=== PATIENT | male | born 1955 | race Caucasian/White ===

== ENCOUNTER 2017-02-11 07:20 | Day surgery (SDC) | payer MEDICAID ==
[~2017-02-11] VITALS: Ht 177.8 cm; Wt 97.0 kg
[~2017-02-11 07:20] MED LIST: BACITRACIN 50,000 UNIT ONE; BACITRACIN OINT 500U/GM, 15 GM ONE; EPINEPHRINE 1 MG/ML, 1ML ONE; EPINEPHRINE TOPICAL SOLN 1 MG/ML, 30ML ONE; FLUORESCEIN OPHTHALMIC 1 MG STRIP ONE; LIDOCAINE/PF 1%, 30ML ONE; OXYMETAZOLINE NASAL SPRAY 0.05%, 15ML ONE
[2017-02-11] MEDS ORDERED: MIDAZOLAM 1 MG/ML, 2ML ONE (07:28)
[2017-02-11] MEDS ORDERED: FENTANYL PF 250 MCG/5ML ONE (07:29)
[2017-02-11] MEDS ORDERED: FLUT9.9S16 NAS (07:52)
[2017-02-11] MEDS ORDERED: ALBU18HF INH (07:52)
[2017-02-11] MEDS ORDERED: MONT10TA9 PO (07:52)
[2017-02-11 07:53] VITALS: BP 139/93
[2017-02-11] MEDS ORDERED: LACTATED RINGERS 1,000 ML IV SCH (08:17)
[2017-02-11] MEDS ORDERED: REMIFENTANIL 2 MG ONE (09:09)
[2017-02-11] MEDS ORDERED: hydrALAzine 20 MG/ML, 1ML IV PRN (10:00)
[2017-02-11] MEDS ORDERED: OXYcodone 5 MG/5 ML ORAL.SOL UDC PO PRN (10:00)
[2017-02-11] MEDS ORDERED: MEPERIDINE/PF 25MG/0.5ML IVPush PRN (10:00)
[2017-02-11] MEDS ORDERED: ONDANSETRON 2MG/ML, 2ML IVPush PRN (10:00)
[2017-02-11] MEDS ORDERED: ACETAMINOPHEN 325 MG TABLET PO PRN (10:00)
[2017-02-11] MEDS ORDERED: HYDROcodone/APAP 7.5-325MG/15ML UDC PO PRN (10:00)
[2017-02-11] MEDS ORDERED: EPHEDRINE 50 MG/ML, 1ML IVPush PRN (10:00)
[2017-02-11] MEDS ORDERED: MIDAZOLAM 1 MG/ML, 2ML IV PRN (10:00)
[2017-02-11] MEDS ORDERED: HYDROmorphone 1 MG/ML, 1ML IV PRN (10:00)
[2017-02-11] MEDS ORDERED: LABETALOL 5MG/ML, 20ML IV PRN (10:00)
[2017-02-11] MEDS ORDERED: PROMETHAZINE 25 MG/ML, 1ML IV PRN (10:00)
[2017-02-11] MEDS ORDERED: FENTANYL PF 100 MCG/2ML ONE (11:12)
[2017-02-11] MEDS ORDERED: OXYcodone 5 MG/5 ML ORAL.SOL UDC ONE (11:12)
[2017-02-11] MEDS: FENTANYL PF 100 MCG/2ML IV PRN ×2 (11:19→11:28)
[2017-02-11] MEDS ORDERED: ONDANSETRON 2MG/ML, 2ML ONE (15:24)
[2017-02-11] MEDS ORDERED: SUCCINYLCHOLINE 20 MG/ML, 10ML ONE (15:24)
[2017-02-11] MEDS ORDERED: DEXAMETHASONE 4 MG/ML, 1ML ONE (15:24)
[2017-02-11] MEDS ORDERED: PROPOFOL 10 MG/ML, 20ML ONE (15:24)
[2017-02-11] MEDS ORDERED: CEFAZOLIN 1,000 MG ONE (15:24)
[2017-02-11] MEDS ORDERED: PROPOFOL 10 MG/ML, 50ML ONE (15:24)
== END 2017-02-11 14:35 | disposition home or self-care (01) ==
LOC: OUT 07:20
PROVIDERS: ATTEND Otolaryngology
DX: J32.8 Other chronic sinusitis (principal); J33.8 Other polyp of sinus; J45.909 Unspecified asthma, uncomplicated
CPT/HCPCS: 31255; 31267; 31276; 31288; 87070; 87075; 87077; 87186; 87205; 88304; J0171; J0330; J0690; J1100; J2250; J2405; J2704; J3010; J3490; J7120; S1090